=== PATIENT | male | born 1940 | race Caucasian/White ===

== ENCOUNTER → 2020-04-29 | Outpatient (CLI) | payer OTHER ==
[~2020-04-29] MED LIST: ASPIRIN EC81 MG PO; ATORVASTATIN CA20 MG PO; BUSPAR 10MG10 MG PO; CARVEDILOL3.125 MG PO; CEFUROXIME500 MG PO; CELEBREX100 MG PO; CLOPIDOGREL75 MG PO; COZAAR50 MG PO; CYMBALTA60 MG PO; ENDOCET 10-3251 EACH PO; FLOMAX 0.4 MG0.4 MG PO; MEDROL4 MG PO; NEURONTIN400 MG PO; NEURONTIN800 MG PO; NORVASC2.5 MG PO; OMEPRAZOLE20 M1 PO; PANTOPRAZOLE SO40 MG PO; PERCOCET 10-321 EACH PO; PERCOCET 5-3251 EACH PO; TRAZODONE HCL50 MG PO; ZITHROMAX500 MG PO
== END ==
LOC: HEART 5 09:17
DX: I25.10 Atherosclerotic heart disease of native coronary artery without angina pectoris (principal); R00.2 Palpitations; R06.02 Shortness of breath; I08.8 Other rheumatic multiple valve diseases; R93.1 Abnormal findings on diagnostic imaging of heart and coronary circulation
CPT/HCPCS: 93306

== ENCOUNTER → 2020-06-17 | Outpatient (CLI) | payer OTHER | LOC: HEART 5 09:26 | DX: R06.02 Shortness of breath (principal); Z87.891 Personal history of nicotine dependence | CPT/HCPCS: 71046; 94010 ==

== ENCOUNTER → 2020-06-21 | Outpatient (CLI) | payer OTHER | LOC: CT 06-07 09:00 | DX: R59.1 Generalized enlarged lymph nodes (principal); K57.30 Diverticulosis of large intestine without perforation or abscess without bleeding | CPT/HCPCS: 36415; 71260; 82565; Q9965 ==

== ENCOUNTER → 2020-06-26 | Outpatient (CLI) | payer OTHER | LOC: SLEEP 21:30 | DX: G47.33 Obstructive sleep apnea (adult) (pediatric) (principal) | CPT/HCPCS: 95811 ==

== ENCOUNTER 2020-07-23 14:44 | Emergency (ER) | payer OTHER | END 2020-07-23 17:52 | disposition home or self-care (01) | LOC: ER1 14:44 | DX: S22.31XA Fracture of one rib, right side, initial encounter for closed fracture (principal); S80.12XA Contusion of left lower leg, initial encounter; W01.0XXA Fall on same level from slipping, tripping and stumbling without subsequent striking against object, initial encounter; Y92.009 Unspecified place in unspecified non-institutional (private) residence as the place of occurrence of the external cause | CPT/HCPCS: 71101; 73590; 99283 ==

== ENCOUNTER → 2020-10-09 | Outpatient (CLI) | payer MEDICARE | LOC: EXRD 10:43 | DX: R79.89 Other specified abnormal findings of blood chemistry (principal); N28.1 Cyst of kidney, acquired | CPT/HCPCS: 76775 ==

== ENCOUNTER 2020-11-09 14:43 | Emergency (ER) | payer MEDICARE | END 2020-11-09 19:25 | disposition home or self-care (01) | LOC: ER1 14:43 | DX: S40.022A Contusion of left upper arm, initial encounter (principal); G89.29 Other chronic pain; I10 Essential (primary) hypertension; Z79.01 Long term (current) use of anticoagulants; Z79.02 Long term (current) use of antithrombotics/antiplatelets; Z79.899 Other long term (current) drug therapy; W19.XXXA Unspecified fall, initial encounter | CPT/HCPCS: 71046; 73030; 73060; 99283 ==

== ENCOUNTER → 2020-12-16 | Outpatient (CLI) | payer OTHER | LOC: KOH-I 11:15 | DX: M51.16 Intervertebral disc disorders with radiculopathy, lumbar region (principal); M47.26 Other spondylosis with radiculopathy, lumbar region; M48.061 Spinal stenosis, lumbar region without neurogenic claudication; M47.817 Spondylosis without myelopathy or radiculopathy, lumbosacral region; M51.87 Other intervertebral disc disorders, lumbosacral region | CPT/HCPCS: 72148 ==

== ENCOUNTER → 2020-12-24 | Outpatient (CLI) | payer OTHER | LOC: HEART 5 08:33 | DX: I25.10 Atherosclerotic heart disease of native coronary artery without angina pectoris (principal); I11.0 Hypertensive heart disease with heart failure; I50.9 Heart failure, unspecified | CPT/HCPCS: 93306 ==

== ENCOUNTER 2021-03-20 16:03 | Observation (INO) | payer OTHER ==
[~2021-03-20] VITALS: Ht 170.2 cm; Wt 100.2 kg
[2021-03-20 17:19] LABS: HEMOGLOBIN 11.1 gm/dl (14.0-17.5); RED BLOOD COUNT 3.55 M/UL (4.20-5.50)
[2021-03-20 17:24] LABS: BUN/CREATININE RATIO 24 (0-10)
--- NOTE | 2021-03-21 00:06 | NUR ---
Attempted to call patient's daughter Teo to ask what meds he takes at home because the patient said he didn't know and she kept up with all of them. I received no answer, meds can not be reconciled at this time.
[2021-03-21 06:50] LABS: HEMOGLOBIN 10.5 gm/dl (14.0-17.5); RED BLOOD COUNT 3.34 M/UL (4.20-5.50)
[2021-03-21 06:54] LABS: WHITE BLOOD COUNT 9.1 K/UL (4.5-11.0)
[2021-03-21 07:22] LABS: BUN/CREATININE RATIO 26 (0-10)
[2021-03-21] MEDS ORDERED: NITROGLYCERIN0.4 MG SL (12:06)
== END 2021-03-21 15:12 | disposition home or self-care (01) ==
LOC: ER1 16:03 → M/S 22:28 → CDU 22:28 → M/S 23:17
PROVIDERS: Physician Assistant; ADMIT Internal Medicine
DX: R07.2 Precordial pain (principal); I10 Essential (primary) hypertension; M25.061 Hemarthrosis, right knee; M17.11 Unilateral primary osteoarthritis, right knee; M25.461 Effusion, right knee; I25.10 Atherosclerotic heart disease of native coronary artery without angina pectoris; I25.2 Old myocardial infarction; Z96.649 Presence of unspecified artificial hip joint; Z96.652 Presence of left artificial knee joint; K21.9 Gastro-esophageal reflux disease without esophagitis; Z98.1 Arthrodesis status; Z82.49 Family history of ischemic heart disease and other diseases of the circulatory system; Z20.822 Contact with and (suspected) exposure to COVID-19; Z79.82 Long term (current) use of aspirin
CPT/HCPCS: 36415; 71045; 73701; 80048; 80053; 82550; 82553; 83874; 84484; 85025; 85610; 86140; 93005; G0378; J2270; Q9967; U0002

== ENCOUNTER → 2021-05-20 | Outpatient (CLI) | payer MEDICARE ==
[~2021-05-20] MED LIST changes: +NITROGLYCERIN0.4 MG SL
== END ==
LOC: HEART 5 05-12 08:00
DX: I25.10 Atherosclerotic heart disease of native coronary artery without angina pectoris (principal); I11.9 Hypertensive heart disease without heart failure; R07.9 Chest pain, unspecified; R42 Dizziness and giddiness; R00.2 Palpitations
CPT/HCPCS: 78452; 93306; A9502; J2785

== ENCOUNTER 2021-10-06 15:49 | Observation (INO) | payer OTHER, MEDICARE ==
[~2021-10-06] VITALS: Ht 170.2 cm; Wt 77.1 kg
[2021-10-06 19:00] LABS: HEMOGLOBIN 13.9 gm/dl (14.0-17.5); RED BLOOD COUNT 4.36 M/UL (4.20-5.50); WHITE BLOOD COUNT 9.8 K/UL (4.5-11.0)
[2021-10-06 19:38] LABS: BUN/CREATININE RATIO 15 (0-10)
[2021-10-07 00:53] LABS: HEMOGLOBIN 14.9 gm/dl (14.0-17.5); RED BLOOD COUNT 4.66 M/UL (4.20-5.50); WHITE BLOOD COUNT 12.2 K/UL (4.5-11.0)
[2021-10-07] MEDS ORDERED: ARTHRITIS PAIN150 GM TOP (11:29)
[2021-10-07] MEDS ORDERED: GABAPENTIN600 MG PO (11:30)
[2021-10-07] MEDS ORDERED: HYDROCODON-ACE1 EAC6 PO (11:31)
[2021-10-07] MEDS ORDERED: LEVETIRACETAM500 MG PO (11:31)
[2021-10-07] MEDS ORDERED: LIDOCAINE TOP (11:33)
[2021-10-08 06:32] LABS: HEMOGLOBIN 14.5 gm/dl (14.0-17.5); RED BLOOD COUNT 4.58 M/UL (4.20-5.50); WHITE BLOOD COUNT 9.4 K/UL (4.5-11.0)
[2021-10-08 06:54] LABS: BUN/CREATININE RATIO 18 (0-10)
[2021-10-08] MEDS ORDERED: CARVEDILOL12.5 MG PO (11:12)
[2021-10-08] MEDS ORDERED: ASPIRIN81 MG PO (11:18)
[2021-10-08] MEDS ORDERED: ATORVASTATIN CA40 MG PO (11:18)
[2021-10-09 04:25] LABS: RED BLOOD COUNT 4.7 M/UL (4.20-5.50)
[2021-10-09 04:54] LABS: BUN/CREATININE RATIO 19 (0-10)
--- NOTE | 2021-10-09 13:33 | NUR ---
REPORT CALLED TO ROXANNE AT [facility] NOTIFIED AT THIS TIME
== END 2021-10-09 16:24 ==
LOC: ER1 15:49 → CDU 23:51 → M/S 23:51
PROVIDERS: Internal Medicine; Physician Assistant; ADMIT Internal Medicine
DX: S32.050A Wedge compression fracture of fifth lumbar vertebra, initial encounter for closed fracture (principal); Z20.822 Contact with and (suspected) exposure to COVID-19; I10 Essential (primary) hypertension; I25.10 Atherosclerotic heart disease of native coronary artery without angina pectoris; M25.552 Pain in left hip
CPT/HCPCS: 36415; 51702; 71045; 72131; 72192; 73552; 73562; 80048; 80053; 81001; 82550; 82553; 82607; 82746; 83735; 84484; 84550; 85025; 93005; 96372; 96374; 97116-GP-CQ; 97162; 97166; 97530; 97530-GP-CQ; 99285; G0378; J0360; J1650; U0002

== ENCOUNTER → 2021-11-27 | Outpatient (CLI) | payer MEDICARE ==
[~2021-11-27] MED LIST changes: +ARTHRITIS PAIN150 GM TOP; +ASPIRIN81 MG PO; +ATORVASTATIN CA40 MG PO; +CARVEDILOL12.5 MG PO; +GABAPENTIN600 MG PO; +HYDROCODON-ACE1 EAC6 PO; +LEVETIRACETAM500 MG PO; +LIDOCAINE TOP
== END ==
LOC: KOH-I 10:15
DX: M47.26 Other spondylosis with radiculopathy, lumbar region (principal); M48.061 Spinal stenosis, lumbar region without neurogenic claudication; M48.07 Spinal stenosis, lumbosacral region; M48.56XD Collapsed vertebra, not elsewhere classified, lumbar region, subsequent encounter for fracture with routine healing
CPT/HCPCS: 72148

== ENCOUNTER 2021-12-28 13:23 | Emergency (ER) | payer MEDICARE ==
[2021-12-28 16:17] LABS: HEMOGLOBIN 12.5 gm/dl (14.0-17.5); RED BLOOD COUNT 3.9 M/UL (4.20-5.50); WHITE BLOOD COUNT 8.8 K/UL (4.5-11.0)
[2021-12-28 16:39] LABS: BUN/CREATININE RATIO 22 (0-10)
[2021-12-28] MEDS ORDERED: VOLTAREN ARTHRI20 GM TP (19:21)
== END 2021-12-28 19:56 | disposition home or self-care (01) ==
LOC: ER1 13:23
PROVIDERS: Physician Assistant
DX: R07.9 Chest pain, unspecified (principal); M25.562 Pain in left knee; M54.50 Low back pain, unspecified; I11.9 Hypertensive heart disease without heart failure; I25.2 Old myocardial infarction; Z88.8 Allergy status to other drugs, medicaments and biological substances; Z20.822 Contact with and (suspected) exposure to COVID-19
CPT/HCPCS: 70450; 71045; 72125; 72131; 80053; 81001; 82550; 82553; 83880; 84484; 85025; 93005; 96372; 99285; J2270; J2405; U0002